=== PATIENT | female | born 1990 | race Two or more races ===

== ENCOUNTER 2024-08-14 20:19 | Emergency (ER) | payer OTHER ==
[~2024-08-14] VITALS: Ht 170.2 cm; Wt 72.6 kg
[2024-08-14 20:19] VITALS: O2SAT 99
== END 2024-08-15 00:01 | disposition left against medical advice (07) ==
LOC: ER 20:19
DX: M54.50 Low back pain, unspecified (principal); Z88.0 Allergy status to penicillin
CPT/HCPCS: A4606; A4663